=== PATIENT | male | born 1990 | race Two or more races ===

== ENCOUNTER 2017-03-18 11:50 | Emergency (ER) | payer MEDICAID ==
[~2017-03-18] VITALS: Ht 177.8 cm; Wt 74.8 kg
[~2017-03-18 11:50] MED LIST: NKM
--- NOTE | 2017-03-18 12:18 | Emergency Room Report ---
History of Present Illness General Chief Complaint: Upper Respiratory Illness Source: Patient Present Illness HPI The patient is a 26-year-old male who denies any medical history presenting for right-sided chest pain for the past 2 days. Pain is described as an 8/10 dull ache and does not radiate from the right chest. Worse with movement of the shoulder and touch. 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 He denies history of smoking. He denies any familial cardiac history. Denies any other symptoms including shortness of breath, nausea, vomiting, fever, chills, cough, abdominal pain. Allergies: Coded Allergies: No Known Allergies (Unverified , 06/19/14) Patient History Past Medical History: see triage record Pertinent Family History: none Reviewed Nursing Documentation: PMH: Agreed, PSxH: Agreed Nursing Documentation-PMH Past Medical History: No Stated History Review of Systems All Other Systems: negative except mentioned in HPI Physical Exam Vital Signs Date Time Temp Pulse Resp B/P (MAP) Pulse Ox O2 Delivery O2 Flow Rate FiO2 03/18/17 11:54 97.7 74 18 124/59 99 Room Air Sp02 EP Interpretation: reviewed, normal General Appearance: no apparent distress, alert, GCS 15, non-toxic Head: normocephalic, atraumatic Eyes: bilateral eye normal inspection, bilateral eye PERRL ENT: hearing grossly normal, normal pharynx, no angioedema, normal voice Respiratory: lungs clear, normal breath sounds, speaking full sentences, other - TTP over R medial chest, chest symmetrical Gastrointestinal: normal bowel sounds, non tender, soft, non-distended, no guarding, no rebound Genitourinary: normal inspection, no CVA tenderness Musculoskeletal: back normal, gait/station normal, normal range of motion Neurologic: alert, oriented x3, responsive, motor strength/tone normal, sensory intact, speech normal Psychiatric: judgement/insight normal, memory normal, mood/affect normal, no suicidal/homicidal ideation Skin: normal color, no rash, warm/dry, well hydrated Medical Decision Making PA Attestation Dr. Duggan is my supervising physician. Patient management was discussed with my supervising physician Diagnostic Impression: Primary Impression: Chest pain Qualified Codes: R07.9 - Chest pain, unspecified ER Course The patient is a 26-year-old male who denies any medical history presenting for right-sided chest pain for the past 2 days Differential diagnosis include but not limited to muscle strain, ACS, PE,CHF, pneumonia, gastritis PE: NAD There is tenderness to palpation over the right medial chest. RRR Lungs clear to auscultation bilaterally EKG unremarkable. No acute findings The patient will be discharged home and treated for pain. He is given ER precautions and will followup with his primary doctor EKG Diagnostic Results EP Interpretation: No acute changes Rate: normal Rhythm: NSR ST Segments: no acute changes ASA given to the pt in ED: No PA Scribe Text EKG was reviewed and read with my supervising physician. No acute ST segment changes are seen. Normal rate and rhythm. No acute changes. Chest X-Ray Diagnostic Results Chest X-Ray Diagnostic Results : Chest X-Ray Ordered: Yes # of Views/Limited/Complete: 1 View Indication: Chest Pain EP Interpretation: Yes PA Xray: Interpretation reviewed, by supervising MD, and agrees with findings. Interpretation: no consolidation, no effusion, no pneumothorax Impression: No acute disease Electronically Signed by: Efe Peralta PA-C Last Vital Signs Date Time Temp Pulse Resp B/P (MAP) Pulse Ox O2 Delivery O2 Flow Rate FiO2 03/18/17 11:54 97.7 74 18 124/59 99 Room Air Status: improved Disposition: HOME, SELF-CARE Condition: Improved Scripts Cyclobenzaprine Hcl* (FLEXERIL*) 10 Mg Tablet 10 MG ORAL THREE TIMES A DAY, #15 TAB Prov: EFE PERALTA P.ARodrigue 03/18/17 Ibuprofen* (MOTRIN*) 600 Mg Tablet 600 MG ORAL Q8H Y for For Pain, #30 TAB 0 Refills Prov: EFE PERALTA P.A. 03/18/17 EFE PERALTA Mar 18, 2017 12:18
[2017-03-18] MEDS ORDERED: CYCLOBENZAPRINE10 MG ORAL (12:34)
[2017-03-18] MEDS ORDERED: IBUPROFEN600 MG ORAL (12:34)
[2017-03-18] MEDS ORDERED: Cyclobenzaprine 10mg Tab ORAL ONE (12:45)
[2017-03-18 13:05] VITALS: BP 112/74
--- NOTE | 2017-03-19 13:20 | Diagnostic Imaging Report ---
Indication: Dyspnea Comparison: None A single view chest radiograph was obtained. Findings: Cardiomediastinal appearance is within normal limits for age. Pulmonary vascularity is appropriate. The diaphragmatic contour is smooth and costophrenic angles are sharp. No pleural effusions are identified. The bones are osteopenic. Impression: No acute findings
--- NOTE | 2017-03-24 00:31 | Cardiology Report ---
APPROVED REPORT EKG Measurement Heart [id number] Normal sinus rhythm Normal ECG
== END 2017-03-18 13:05 | disposition home or self-care (01) ==
LOC: EMR 12:10
DX: R07.89 Other chest pain (principal)
CPT/HCPCS: 71010; 93005; 99283

== ENCOUNTER → 2018-10-15 | Emergency (ER) | payer MEDICAID, OTHER ==
[~2018-10-15] VITALS: Ht 175.3 cm; Wt 88.0 kg
[~2018-10-15] MED LIST changes: +ACETAMINOPHEN-1 EAC1 ORAL; +CYCLOBENZAPRINE10 MG ORAL; +IBU800 MG PO; +IBUPROFEN600 MG ORAL
--- NOTE | 2018-10-15 15:37 | NUR ---
ED Nurse Note: Pt. AAOx4. ambullatory. pt. hit a wall 1 week ago and still has pain in right big toe
--- NOTE | 2018-10-15 15:58 | Emergency Room Report ---
History of Present Illness General Chief Complaint: Lower Extremity Injury Source: Patient Present Illness HPI 28-year-old male with no significant past medical history here complaining of pain and swelling in the right big toe x1 week. Patient reports that he kicked the wall 1 week ago and has been having pain in his right big toe ever since rating a 10 out of 10 with radiation. Denies tingling and numbness. Has not taken medication for his symptoms. Patient reports that at the beginning his foot was more swollen and purple however the swelling is going down but the right big toe staying painful. Denies any other injuries, calf tenderness, chest pain, shortness of breath, palpitation, abdominal pain, nausea vomiting and all other associated symptoms. Allergies: Coded Allergies: No Known Allergies (Unverified , 06/19/14) Patient History Past Medical History: see triage record Past Surgical History: unable to obtain Pertinent Family History: none Immunizations: UTD Reviewed Nursing Documentation: PMH: Agreed; PSxH: Agreed Nursing Documentation-PMH Past Medical History: No Stated History Review of Systems All Other Systems: negative except mentioned in HPI Physical Exam Vital Signs Date Time Temp Pulse Resp B/P (MAP) Pulse Ox O2 Delivery O2 Flow Rate FiO2 10/15/18 15:32 98.4 79 17 111/67 (82) 99 Room Air Sp02 EP Interpretation: reviewed, normal General Appearance: normal inspection, well appearing, no apparent distress, alert, GCS 15 Head: normocephalic, atraumatic Eyes: bilateral eye normal inspection, bilateral eye PERRL ENT: normal ENT inspection, hearing grossly normal, normal pharynx Neck: normal inspection, full range of motion, supple Respiratory: normal inspection, chest non-tender, lungs clear, normal breath sounds, no rhonchi, no wheezing Cardiovascular #1: normal inspection, normal peripheral pulses, regular rate, rhythm, no edema, no murmur Cardiovascular #2: 2+ dorsalis pedis (R), 2+ dorsalis pedis (L) Gastrointestinal: normal inspection, non tender, soft, no peritonitis, no bruit Rectal: deferred Musculoskeletal: back normal, no calf tenderness, tender - Right big toe tender and swollen Neurologic: normal inspection, alert Psychiatric: normal inspection, judgement/insight normal Lymphatic: normal inspection, no adenopathy Procedures Splinting Splinting : Consent: Verbal Hand-Made Type: plaster Splint: poserior short Pre-Proc Neuro Vasc Exam: normal Post-Proc Neuro Vasc Exam: normal Patient Tolerated: Well Complications: None Medical Decision Making PA Attestation All my diagnosis and treatment plans were reviewed ad discussed with my supervising physician Dr. Olivera Diagnostic Impression: Primary Impression: Toe fracture, right ER Course 28-year-old male with no significant past medical history here complaining of pain and swelling in the right big toe x1 week. Patient reports that he kicked the wall 1 week ago and has been having pain in his right big toe ever since rating a 10 out of 10 with radiation. Denies tingling and numbness. Has not taken medication for his symptoms. Patient reports that at the beginning his foot was more swollen and purple however the swelling is going down but the right big toe staying painful. Denies any other injuries, calf tenderness, chest pain, shortness of breath, palpitation, abdominal pain, nausea vomiting and all other associated symptoms. Ddx considered but are not limited to: Toe fracture, sprain, strain Vital signs: are WNL, pt. is afebrile H&PE are most consistent with: Right first metatarsal fracture ORDERS: foot Xray , Tylenol 3, ibuprofen 800 ED INTERVENTIONS: Splint and crutches DISCHARGE: At this time pt. is stable for d/c to home. Will provide printed patient care instructions, and any necessary prescriptions. Care plan and follow up instructions have been discussed with the patient prior to discharge. Advised the patient to follow-up with crisis intervention specialist. Use crutches avoid strenuous physical activity you were also provided with a copy of the CD of your images and report. Other X-Ray Diagnostic Results Other X-Ray Diagnostic Results : X-Ray ordered: Foot # of Views/Limited Vs Complete: 3 View Indication: Pain EP Interpretation: Yes CONCHITA Xray: Interpretation reviewed, by supervising MD, and agrees with findings. Interpretation: other - Fracture of first right metatarsal Impression: Other - fx right first metatarsal Electronically Signed by: Harmeet Christianson PA-C Last Vital Signs Date Time Temp Pulse Resp B/P (MAP) Pulse Ox O2 Delivery O2 Flow Rate FiO2 10/15/18 15:32 98.4 79 17 111/67 (82) 99 Room Air Disposition: HOME, SELF-CARE Condition: Stable Scripts Ibuprofen (Ibu) 800 Mg Tablet 800 MG PO BID, #30 TAB Prov: Harmeet Ogden 10/15/18 Acetaminophen With Codeine (T#3) (TYLENOL #3 TAB*) Y Tab 1 TAB ORAL Q8HR PRN for For Pain for 3 Days, #10 TAB Prov: Harmeet Ogden 10/15/18 Patient Instructions: Toe Fracture With Rehab-[facility] Additional Instructions: Keep splint on see crisis intervention specialist avoid strenuous physical activity take medication as directed alternate between icing and heating the affected area Harmeet Ogden Oct 15, 2018 15:58
--- NOTE | 2018-10-15 16:05 | NUR ---
ED Nurse Note: pt. was provided with crutches and pt. education done on how to utilize crutches. return of demo was shown by the pt.
[2018-10-15 16:07] VITALS: BP 115/68
--- NOTE | 2018-10-15 16:07 | NUR ---
ER DISCHARGE NOTE: Patient is cleared to be discharged per PA, pt is aox4, on room air, with stable vital signs. pt was given dc and prescription instructions, pt was able to verbalize understanding, pt id band removed. pt is able to ambulate with steady gait. pt took all belongings. Pt. has a splint applied on the affected area
--- NOTE | 2018-10-15 16:22 | Diagnostic Imaging Report ---
Indication: Pain, trauma Technique: 3 views right foot Comparison: none Findings: There is a fracture of the first proximal phalanx, oriented largely parallel to the shaft, and involving the distal articular surface. This is nondisplaced. No other acute fractures. No dislocations. The joint spaces are preserved. Impression: Positive for first proximal phalangeal fracture Findings discussed by phone with physician assistant Ga in the emergency room at the time of interpretation
== END | disposition home or self-care (01) ==
LOC: EMR 16:21
DX: S92.414A Nondisplaced fracture of proximal phalanx of right great toe, initial encounter for closed fracture (principal); W22.8XXA Striking against or struck by other objects, initial encounter; Y92.9 Unspecified place or not applicable
CPT/HCPCS: 29515; 99283

== ENCOUNTER 2019-04-21 05:43 | Emergency (ER) | payer OTHER ==
[~2019-04-21] VITALS: Ht 177.8 cm; Wt 86.2 kg
[2019-04-21 06:00] VITALS: BP 132/82
--- NOTE | 2019-04-21 06:00 | NUR ---
ED Nurse Note: Patient walked in from home d/t abdominal started 2pm yesterday aching pain rated at 9/10 and c/o nausea. Denies vomiting and diarrhea. Patient aao x 4 and ambulatory. No acute distress upon assessment.
--- NOTE | 2019-04-21 06:00 | NUR ---
ED Nurse Note: Urine collected and sent to lab.
--- NOTE | 2019-04-21 06:03 | NUR ---
ED Nurse Note: ERMD at bedside.
--- NOTE | 2019-04-21 06:06 | Emergency Room Report ---
History of Present Illness General Chief Complaint: Abdominal Pain Source: Patient (Fredis Vinson MD) Present Illness HPI Is a 28-year-old male with no past medical history. He presents with complaint of abdominal pain. Pain started yesterday afternoon but worsened through the night. Unable to sleep because of the pain. Pain is to the lower quadrants. Worse with palpation. Better with rest. No nausea no vomiting. No diarrhea. No fever. Pain is 8 out of 10. (Fredis Vinson MD) Allergies: Coded Allergies: No Known Allergies (Unverified , 06/19/14) Patient History Past Medical History: none, see triage record, old chart reviewed Past Surgical History: none Pertinent Family History: none Social History: Denies: smoking Immunizations: other Reviewed Nursing Documentation: PMH: Agreed; PSxH: Agreed (Fredis Vinson MD) Nursing Documentation-PMH Past Medical History: No Stated History (Fredis Vinson MD) Review of Systems Eye: Denies: eye pain, blurred vision ENT: Denies: ear pain, nose congestion, throat swelling Respiratory: Denies: cough, shortness of breath Cardiovascular: Denies: chest pain, palpitations Gastrointestinal: Reports: abdominal pain; Denies: diarrhea, nausea, vomiting Musculoskeletal: Denies: back pain, joint pain Skin: Denies: rash Neurological: Denies: headache, numbness Endocrine: Denies: increased thirst, increased urine Hematologic/Lymphatic: Denies: easy bruising All Other Systems: negative except mentioned in HPI (Fredis Vinson MD) Physical Exam Vital Signs Date Time Temp Pulse Resp B/P (MAP) Pulse Ox O2 Delivery O2 Flow Rate FiO2 04/21/19 05:46 98.1 75 19 129/80 (96) 96 Room Air Vitals normal Sp02 EP Interpretation: reviewed, normal General Appearance: well appearing, no apparent distress, alert Head: normocephalic, atraumatic Eyes: bilateral eye PERRL, bilateral eye EOMI ENT: hearing grossly normal, normal pharynx Neck: full range of motion, supple, no meningismus Respiratory: chest non-tender, lungs clear, normal breath sounds Cardiovascular #1: regular rate, rhythm, no murmur Gastrointestinal: normal bowel sounds, no mass, no organomegaly, no bruit, non- distended, tenderness - Tenderness to the lower quadrants but mostly right side Musculoskeletal: back normal, normal range of motion, gait/station normal Psychiatric: mood/affect normal (Fredis Vinson MD) Medical Decision Making Diagnostic Impression: Primary Impression: Abdominal pain Qualified Codes: R10.30 - Lower abdominal pain, unspecified ER Course Patient with lower abdominal pain. Labs and CT scan ordered. Will sign this patient out to Dr. Potts for final disposition. 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 I did take his phone number, [phone], and told him I would call him but if his appendix ruptures or he has some other diagnosis seen on CT scan that is life-threatening, he is at risk of , cardiac arrest, and permanent brain damage. Understand this and reports he will return if we call him and tell him there is a problem, but I explained to him the risks of miscommunication, and also more importantly, delay in treatment, yet he still wishes to leave AGAINST MEDICAL ADVICE. Patient CT scan eventually did result, impression: No acute findings. 8 mm incidental right adrenal adenoma. (PARVIN POTTS M.D) Disposition: AGAINST MEDICAL ADVICE Condition: Unknown Fredis Vinson MD Apr 21, 2019 06:06 PARVIN POTTS M.D Apr 21, 2019 08:38
[2019-04-21 06:15] LABS: APPEARANCE,URINE CLEAR; BILIRUBIN, URINE NEGATIVE (NEGATIVE); COLOR,URINE PALE YELLOW; GLUCOSE, URINE (UA) NEGATIVE (NEGATIVE); KETONES,URINE NEGATIVE (NEGATIVE); LEUKOCYTE ESTERASE ,URINE NEGATIVE (NEGATIVE); NITRITE,URINE NEGATIVE (NEGATIVE); PH,URINE 5 (4.5-8.0); PROTEIN,URINE NEGATIVE (NEGATIVE); UROBILINOGEN,URINE NORMAL MG/DL (0.0-1.0)
[2019-04-21] MEDS ORDERED: Ketorolac 30mg Inj IV ONE (06:15)
[2019-04-21 06:30] LABS: BASOPHILS % (AUTO) 0.8 % (0.0-2.0); EOSINOPHILS % (AUTO) 0.6 % (0.0-3.0); HEMATOCRIT 43.6 % (42.0-52.0); HEMOGLOBIN 15.2 G/DL (14.2-18.0); MEAN CORPUSCULAR VOLUME 90 FL (80-99); MONOCYTES % (AUTO) 7.4 % (1.0-10.0); NEUTROPHILS % (AUTO) 77.2 % (45.0-75.0); PLATELET COUNT 256 K/UL (150-450); RED BLOOD COUNT 4.87 M/UL (4.70-6.10); RED CELL DISTRIBUTION WIDTH 11.3 % (11.6-14.8); WHITE BLOOD COUNT 17.9 K/UL (4.8-10.8)
[2019-04-21 06:38] LABS: ANION GAP 10 mmol/L (5-15); BLOOD UREA NITROGEN 14 mg/dL (7-18); CALCIUM 8.6 MG/DL (8.5-10.1); CARBON DIOXIDE 25 MMOL/L (21-32); CHLORIDE 103 MMOL/L (98-107); CREATININE 0.8 MG/DL (0.55-1.30); POTASSIUM 3.7 MMOL/L (3.5-5.1); SODIUM 138 MMOL/L (136-145)
[2019-04-21 06:42] LABS: ALANINE AMINOTRANSFERASE 48 U/L (12-78); ALBUMIN 4.1 G/DL (3.4-5.0); ALBUMIN/GLOBULIN RATIO 1.1 (1.0-2.7); ALKALINE PHOSPHATASE 118 U/L (46-116); ASPARTATE AMINO TRANSFERASE 16 U/L (15-37); BILIRUBIN,TOTAL 0.9 MG/DL (0.2-1.0)
--- NOTE | 2019-04-21 06:50 | NUR ---
ED Nurse Note: Patient taken to CT in stable condition.
--- NOTE | 2019-04-21 07:00 | NUR ---
HAND-OFF: Report given to TAMMY Mckeon.
--- NOTE | 2019-04-21 07:10 | NUR ---
ED Nurse Note: Pt returned from CT on stable condition.
--- NOTE | 2019-04-21 07:31 | NUR ---
ED Nurse Note: ERMD on bedside.
[2019-04-21 08:35] VITALS: BP 130/84
--- NOTE | 2019-04-21 08:35 | NUR ---
AMA: SEE AMA FORM.
--- NOTE | 2019-04-21 08:51 | Diagnostic Imaging Report ---
INDICATION: Abdominal pain TECHNIQUE: Continuous helical transaxial imaging of the abdomen and pelvis was obtained from the lung bases to the pubic symphysis. No intravenous contrast was administered. Coronal 2-D reformats were also obtained. Automatic Exposure Control was utilized. Total Dose length Product (DLP): [address] Dose Index Volume (CTDIvol): 20 mGy Comparison: none FINDINGS: Lungs: The visualized lung bases are clear. Liver: There is a focus of calcification in the right lobe nonspecific. Gallbladder/biliary system: No gallstones are identified. There is no evidence of intrahepatic or extrahepatic biliary ductal dilatation. Spleen: Unremarkable Pancreas: Unremarkable Kidneys: No definite stone or hydronephrosis are identified.. Adrenal glands: There is a 8 mm low-density adrenal mass on the right. This is likely an adrenal adenoma. Bowel: Few diverticula demonstrated throughout the colon. No evidence of acute diverticulitis. Bladder: Unremarkable Aorta/IVC: Unremarkable Peritoneum: There is no free fluid. Few small nodes demonstrated in the mesentery especially on the right lower quadrant region. This is nonspecific. The appendix is not seen but there are no secondary signs of acute appendicitis. Certainly no evidence of abscess. Tiny umbilical hernia containing fat noted.. Bones: Unremarkable IMPRESSION: No acute findings. 8 mm incidental right adrenal adenoma. Note: Evaluation of solid organs is limited on non contrast imaging. The CT scanner at [facility] is accredited by the [employer] and the scans are performed using dose optimization techniques as appropriate to a performed exam including Automatic Exposure control.
--- NOTE | 2019-04-23 15:49 | Emergency Room Report ---
Physical Exam Vital Signs Date Time Temp Pulse Resp B/P (MAP) Pulse Ox O2 Delivery O2 Flow Rate FiO2 04/21/19 05:46 98.1 75 19 129/80 (96) 96 Room Air Medical Decision Making Diagnostic Impression: Primary Impression: Abdominal pain ER Course Patient called the emergency department to obtain the results of his CAT scan. He had to leave AGAINST MEDICAL ADVICE at his previous visit. Findings of a 8 mm low-density adrenal mass on the right likely an adenoma as well as a calcified lesion. These were explained to him that he needs to follow-up with his PMD to arrange further tests such as ultrasound. Also explained to him his blood test. The patient is feeling well and still notes mild abdominal discomfort but no acute distress. Encouraged him to follow-up with his PMD and return to the emergency department with worsening symptoms. Last Vital Signs Date Time Temp Pulse Resp B/P (MAP) Pulse Ox O2 Delivery O2 Flow Rate FiO2 04/21/19 08:35 98.1 83 20 130/84 99 Room Air Disposition: AGAINST MEDICAL ADVICE Condition: Unknown Referrals: [facility],REFERRING (PCP) Cholo Silva MD Apr 23, 2019 15:49
== END 2019-04-21 08:35 | disposition left against medical advice (07) ==
LOC: EMR 06:15
DX: R10.30 Lower abdominal pain, unspecified (principal)
CPT/HCPCS: 36415; 74176; 80053; 81003; 83690; 85025; 96361; 96374; J1885; J7030; Z7502; 99284